=== PATIENT | female | born 1940 | race Caucasian/White ===

== ENCOUNTER → 2017-05-15 | Outpatient (CLI) | payer MEDICARE, OTHER ==
[~2017-05-15] MED LIST: Dyazide, Maxzide 37. PO; Levaquin PO; Levothroid,Synthroid PO; Medrol Dosepak PO; Norvasc PO; Percocet 7.5/325,End PO; Singulair PO; Vicodin,Norco 5/325 PO; ZANAFLEX4 MG PO; Zocor PO; celeXA PO
== END | disposition home or self-care (01) ==
LOC: CDC 12:09
DX: Z01.810 Encounter for preprocedural cardiovascular examination (principal); D49.4 Neoplasm of unspecified behavior of bladder; I49.9 Cardiac arrhythmia, unspecified; R94.31 Abnormal electrocardiogram [ECG] [EKG]
CPT/HCPCS: 93000